=== PATIENT | male | born 1960 | race Caucasian/White ===

== ENCOUNTER 2023-03-23 11:58 | Observation (INO) | payer BC ==
[~2023-03-23] VITALS: Ht 177.8 cm; Wt 95.5 kg
[2023-03-23] MEDS ORDERED: nitroGLYCERIN 0.4mg SUBLingual tab SL PRN ×2 (12:10→13:45)
[2023-03-23] MEDS ORDERED: aspirin 81mg tab.chew PO ONE (12:10)
[2023-03-23] MEDS ORDERED: metoprolol tartrate 50mg tablet PO ONE (12:20)
[2023-03-23 12:23] LABS: MEAN CORPUSCULAR HEMOGLOBIN 27.8 PG (27.0-31.0); MEAN PLATELET VOLUME 7.2 FL (7.4-10.4); MONOCYTES # (AUTO) 0.6 X10'3 (0-0.9)
[2023-03-23 12:25] LABS: BASOPHILS % (AUTO) 0.2 % (0-1); EOSINOPHILS % (AUTO) 0.3 % (0-6); HEMATOCRIT 48.7 % (42.0-52.0); HEMOGLOBIN 16.6 g/dl (14.0-17.9); LYMPHOCYTES # (AUTO) 1.5 X10'3 (1.1-4.8); MEAN CORPUSCULAR HGB CONC 34.1 g/dL (33.0-36.5); MEAN CORPUSCULAR VOLUME 81.7 FL (78-98); MONOCYTES % (AUTO) 6.9 % (2-12); NEUTROPHILS # (AUTO) 6.7 X10'3 (1.8-7.7); NEUTROPHILS % (AUTO) 75.6 % (42-75); PLATELET COUNT 218 X10'3 (140-440); RED BLOOD COUNT 5.97 X10'6 (4.70-6.10); RED CELL DISTRIBUTION WIDTH 13.6 % (11.5-14.5); WHITE BLOOD COUNT 8.9 X10'3 (4.5-11.0)
[2023-03-23 12:38] LABS: ALANINE AMINOTRANSFERASE 33 U/L (12-78); ALBUMIN/GLOBULIN RATIO 0.9 (1.1-1.5); ALKALINE PHOSPHATASE 134 IU/L (46-116); ANION GAP 8 (8-16); ASPARTATE AMINO TRANSFERASE 18 U/L (10-37); BILIRUBIN,TOTAL 0.5 MG/DL (0.1-1.0); BLOOD UREA NITROGEN 18 MG/DL (7-18); BUN/CREATININE RATIO 17.6 (10.0-20.0); CALCIUM 9.8 MG/DL (8.5-10.1); CHLORIDE 102 MMOL/L (99-107); CREATININE 1.02 MG/DL (0.60-1.10); GLUCOSE 102 MG/DL (70-104); POTASSIUM 4.2 MMOL/L (3.5-5.1); SODIUM 140 MMOL/L (135-145); TOTAL CARBON DIOXIDE 30.1 MMOL/L (24-32); TOTAL PROTEIN 8.3 G/DL (6.4-8.2); eCRCL 80 ML/MIN; eGFR 74 ML/MIN
[2023-03-23 12:44] LABS: PRO BRAIN NATRIURETIC PEPTIDE < 30 PG/ML (0-125)
[2023-03-23] MEDS ORDERED: mag hydrox/Alum hydrox/simeth 30ml oral suspension PO PRN (13:45)
[2023-03-23] MEDS ORDERED: regadenoson 0.4mg/5ml syringe IV PRN (13:45)
[2023-03-23] MEDS ORDERED: morphine 2 MG/ML inj. syringe IV PRN ×2 (13:45)
[2023-03-23] MEDS ORDERED: potassium Cl 20 mEq SR tablet PO PRN ×2 (13:45)
[2023-03-23] MEDS ORDERED: aminophylline 250mg/10ml inj. IV PRN (13:45)
[2023-03-23] MEDS ORDERED: magnesium 4gm in 100ml NS 100 ML IV PRN (13:45)
[2023-03-23] MEDS ORDERED: acetaminophen 325mg tablet PO PRN (13:45)
[2023-03-23] MEDS ORDERED: metoprolol tartrate 1mg/ml inj IV PRN (13:45)
[2023-03-23] MEDS ORDERED: HYDROcodone/acetaminophen 5mg/325mg tablet PO PRN (13:45)
[2023-03-23] MEDS ORDERED: magnesium Cl slow-release 64mg tablet PO PRN (13:45)
[2023-03-23] MEDS ORDERED: potassium Cl 40MEQ/1/2NS 520ml 520 ML IV PRN (13:45)
[2023-03-23] MEDS ORDERED: ondansetron/PF 4mg/2ml inj IV PRN (13:45)
[2023-03-23] MEDS ORDERED: magnesium hydroxide 30ml (MOM) UD suspension PO PRN (13:45)
[2023-03-23] MEDS ORDERED: PERFLUTREN PROTEIN-A MICROSPHR (Optison) 0.22 MG/ML 3ML VIAL IV ONE (14:00)
[2023-03-23] MEDS: docusate sod 100mg capsule PO SCH (20:00)
[2023-03-23 23:35] VITALS: BP 153/79; PULSE 72; RESP 18; TEMP 98; O2SAT 98
[2023-03-24] VITALS (25 sets, daily range): BP systolic 120–164; BP diastolic 65–83; PULSE 69–140; RESP 12–20; TEMP 97.8–98.2; O2SAT 93–99
[2023-03-24 06:55] LABS: BASOPHILS % (AUTO) 0.3 % (0-1); EOSINOPHILS # (AUTO) 0.1 X10'3 (0-0.9); EOSINOPHILS % (AUTO) 1.1 % (0-6); HEMATOCRIT 44.9 % (42.0-52.0); HEMOGLOBIN 15.4 g/dl (14.0-17.9); LYMPHOCYTES # (AUTO) 1.6 X10'3 (1.1-4.8); LYMPHOCYTES % (AUTO) 25.1 % (21-51); MEAN CORPUSCULAR HGB CONC 34.2 g/dL (33.0-36.5); MEAN CORPUSCULAR VOLUME 81.8 FL (78-98); MEAN PLATELET VOLUME 7.2 FL (7.4-10.4); MONOCYTES # (AUTO) 0.6 X10'3 (0-0.9); MONOCYTES % (AUTO) 9.7 % (2-12); NEUTROPHILS # (AUTO) 4.2 X10'3 (1.8-7.7); NEUTROPHILS % (AUTO) 63.8 % (42-75); PLATELET COUNT 195 X10'3 (140-440); RED CELL DISTRIBUTION WIDTH 13.4 % (11.5-14.5); WHITE BLOOD COUNT 6.5 X10'3 (4.5-11.0)
[2023-03-24 07:19] LABS: ALANINE AMINOTRANSFERASE 23 U/L (12-78); ALBUMIN 3.2 G/DL (3.4-5.0); ALBUMIN/GLOBULIN RATIO 0.8 (1.1-1.5); ALKALINE PHOSPHATASE 116 IU/L (46-116); ANION GAP 6 (8-16); ASPARTATE AMINO TRANSFERASE 17 U/L (10-37); BILIRUBIN,TOTAL 0.4 MG/DL (0.1-1.0); BLOOD UREA NITROGEN 18 MG/DL (7-18); BUN/CREATININE RATIO 17.6 (10.0-20.0); CALCIUM 9.2 MG/DL (8.5-10.1); CHLORIDE 104 MMOL/L (99-107); CREATININE 1.02 MG/DL (0.60-1.10); GLUCOSE 112 MG/DL (70-104); MAGNESIUM 2.1 MG/DL (1.5-2.4); PHOSPHORUS 3.5 MG/DL (2.3-4.5); POTASSIUM 3.9 MMOL/L (3.5-5.1); SODIUM 139 MMOL/L (135-145); TOTAL PROTEIN 7.2 G/DL (6.4-8.2); eCRCL 80 ML/MIN; eGFR 74 ML/MIN
[2023-03-24] MEDS: docusate sod 100mg capsule PO SCH ×2 (08:00→20:00)
[2023-03-24] MEDS ORDERED: LIDOcaine 1% (10mg/ml) 2ml vial ONE (15:13)
[2023-03-24] MEDS ORDERED: verapamil 2.5 mg/ml inj IV ONE (15:13)
[2023-03-24] MEDS ORDERED: iohexol 350 MG/ML 50ML vial IV ONE (15:14)
[2023-03-24] MEDS ORDERED: nitroGLYCERIN 500mcg/5mL D5W 5 ML IV ONE (15:14)
[2023-03-24] MEDS ORDERED: fentaNYL/PF 50MCG/1 ML 2ML syringe ONE (15:14)
[2023-03-24] MEDS ORDERED: heparin 1,000unit/ml 10ml vial 10 ML ONE (15:14)
[2023-03-24] MEDS ORDERED: iohexol 350MG/ML 100ml bottle IV ONE ×2 (15:14→16:13)
[2023-03-24] MEDS ORDERED: midazolam 1 mg/ML 2ml injection ONE (15:14)
[2023-03-24] MEDS ORDERED: metoprolol tartrate 1mg/ml inj IV ONE (16:09)
[2023-03-24] MEDS ORDERED: OMEP20CA15 PO (18:39)
[2023-03-24 23:40] LABS: CHOL/HDL RATIO 4.2 (0.00-4.99); CHOLESTEROL 179 MG/DL (0-200); CREATININE 0.98 MG/DL (0.60-1.10); HDL CHOLESTEROL 43 MG/DL (35-60); LDL CHOLESTEROL 104 MG/DL (50-100); TRIGLYCERIDES 139 MG/DL (20-135); eCRCL 83 ML/MIN; eGFR 78 ML/MIN
== END 2023-03-24 23:25 | disposition home or self-care (01) ==
LOC: ER 11:58 → ED HOLD 13:54 → ORTHO 4S 23:35
PROVIDERS: ADMIT Family Medicine; ATTEND Family Medicine
DX: I25.10 Atherosclerotic heart disease of native coronary artery without angina pectoris (principal); I10 Essential (primary) hypertension; E66.9 Obesity, unspecified; Z63.4 Disappearance and death of family member; Z79.899 Other long term (current) drug therapy
CPT/HCPCS: 36415; 71045; 76937; 78452; 80053; 80061; 82565; 83735; 83880; 84100; 84484; 85025; 87081; 93005; 93017; 93306; 93458; 99285; A9500; G0378; J1644; J2250; J2785; J3010; J3490; J7030; Q9967; 99152; 99153; C1725; C1894

== ENCOUNTER 2024-10-18 07:13 | Emergency (ER) | payer BC ==
[~2024-10-18] VITALS: Ht 177.8 cm; Wt 94.4 kg
[~2024-10-18 07:13] MED LIST: OMEP20CA15 PO
--- NOTE | 2024-10-18 07:22 | ELECTROCARDIOGRAPH REPORT ---
[facility] Test Date: 2024-10-18 Test Time: 07:20:07 Pat Name: DINA CASTILLO Department: EMERGENCY ROOM Room: Gender: M Senior Graphic Designer: MANAN : 1960 Requested By: MARSHALL CHAPA Order Number: [id number] Reading MD: Dr. Dandre Granado Measurements Intervals [place] Rate: 67 P: 64 FL: 158 QRS: -40 QRSD: 103 T: 39 QT: 403 QTc: 426 Interpretive Statements Sinus rhythm Left axis deviation Electronically Signed On 10-18-2024 20:05:[address] Dandre Granado Please click the below link to view image of tracing.
[2024-10-18 07:31] LABS: MEAN PLATELET VOLUME 7.1 FL (7.4-10.4); RED CELL DISTRIBUTION WIDTH 14.2 % (11.5-14.5)
--- NOTE | 2024-10-18 07:39 | RADIOLOGY REPORT ---
CHEST RADIOGRAPH Indication: CP Technique: Single frontal view of the chest was obtained COMPARISON: DI CHEST,SINGLE VIEW on DOS: 03/23/23 FINDINGS: Lines and Tubes: None Lungs: Clear Pleura: No effusion. No pneumothorax. Cardiomediastinal contours: Unremarkable Bones: Unremarkable IMPRESSION: No acute disease.
[2024-10-18 08:20] LABS: CREATININE 1.01 MG/DL (0.60-1.10); PRO BRAIN NATRIURETIC PEPTIDE 97 PG/ML (0-125); TOTAL CARBON DIOXIDE 27.9 MMOL/L (24-32); eCRCL 78 ML/MIN; eGFR 75 ML/MIN
--- NOTE | 2024-10-18 08:44 | Physician Documentation ---
History of Present Illness ~ Chief Complaint: Chest Pain Stated Complaint: CP Time Seen by MD: 08:21 Primary Medical Doctor: PCP is Eris @ [facility], Dr Rodriguez is Glove Examiner HPI 64-year-old male presenting for chest pain that occurred last night. Patient states that less than evening he started having a pressure-like sensation in his chest and felt like his heart was racing. The pain radiated to his shoulder and up into his neck. He describes it as a pressure-like type of pain. Reports that he took some metoprolol and the pain greatly improved and essentially went away. This morning he woke up and was concerned about it so he came to the ER to get checked out. He describes a long history of having unusual sensations in his chest. He states that he will have these episodic as this is where he will feel like his heart is racing and then subsequently developed a lot of pressure in his chest. He has seen multiple knifer up for this and has been unable to find a diagnosis so far. Reports that he has not appointment with [facility] next week as well as an appointment with Dr. Turner tomorrow. He otherwise denies any shortness of breath, fever, chills or any other associated symptoms. Medication Reconciliation Allergies: Coded Allergies: No Known Allergies (Unverified , 03/23/23) Scheduled Omeprazole (Omeprazole), 1 CAP PO DAILY Past Medical History Past Medical History: No Pertinent History Past Surgical History: noncontributory Patient History: FH: atrial fibrillation Drug Use: none Lives with: Family Lives In: Home Review of Systems All Other Systems at this time: Reviewed and Negative Physical Exam Vital Signs: Temperature: 98.7, Source: Oral, Heart Rate: 72, Respiratory Rate: 16, BP: 166/88, Pulse Oximetry: 99, Weight: 94.400 Oxygen Flow Rate: 0 Physical Exam I have reviewed the triage vitals. CONST: Well developed and well nourished. In no acute distress HENT: Head Atraumatic EYES: Pupils are equal, round and reactive to light. Normal conjunctiva NECK: Normal range of motion. Supple. CARDIO: Normal rate and regular rhythm. No murmurs, rubs, or gallops. S1, S2. PULM/CHEST: No respiratory distress. Lungs clear to auscultation. No wheeze ABD: Soft and nontender. Nondistended. Bowel sounds normal. No guarding. : Exam deferred MSK: No edema. No deformity. NEURO: Alert and oriented to person, place and time. Moving all extremities SKIN: Warm and dry. PSYCH: Normal mood and affect. Good eye contact. Progress Results/Orders Results/Orders Orders - MARSHALL CHAPA MD Chest,Single View (10/18/24 07:19) Monitor (10/18/24 07:19) Saline Lock (10/18/24 07:19) Oxygen (10/18/24 07:19) Hs Troponin I W Calculations (10/18/24 10:19) Completed Orders - MARSHALL CHAPA MD Chest,Single View (10/18/24 07:19) Cbc/Diff (10/18/24 07:19) BMP (10/18/24 07:19) PBNP (10/18/24 07:19) Electrocardiogram (10/18/24 07:19) Hs Troponin I W Calculations (10/18/24 07:19) Hs Troponin I W Calculations (10/18/24 09:19) MG (10/18/24 07:21) Vital Signs 10/18/24 10/18/24 07:20 07:45 Temp 98.7 Pulse 72 Resp 16 B/P (MAP) 166/88 Pulse Ox 99 O2 Flow Rate 0 Laboratory Tests Test 10/18/24 07:21 10/18/24 09:28 White Blood Count 7.6 Red Blood Count 5.74 Hemoglobin 16.2 Hematocrit 46.2 Mean Corpuscular Volume 80.5 Mean Corpuscular Hemoglobin 28.2 Mean Corpuscular Hemoglobin Concent 35.0 Red Cell Distribution Width 14.2 Platelet Count 193 Mean Platelet Volume 7.1 L Neutrophils (%) (Auto) 65.7 Lymphocytes (%) (Auto) 23.5 Monocytes (%) (Auto) 9.7 Eosinophils (%) (Auto) 0.8 Basophils (%) (Auto) 0.3 Neutrophils # (Auto) 5.0 Lymphocytes # (Auto) 1.8 Monocytes # (Auto) 0.7 Eosinophils # (Auto) 0.1 Basophils # (Auto) 0.0 CBC Comment Sodium Level 140 Potassium Level 4.1 Chloride Level 105 Carbon Dioxide Level 27.9 Anion Gap 7 L Blood Urea Nitrogen 14 Creatinine 1.01 Estimated GFR/1.73 m2 75 BUN/Creatinine Ratio 13.9 Glucose Level 110 H Calcium Level 9.0 Magnesium Level 2.4 Troponin I High Sensitivity 5 6 Pro-B-Type Natriuretic Peptide 97 Albumin 3.8 Chemistry Comments Troponin I High Sens Percent Delta 20 Troponin I Hi Sens Absolute Change 1 Departure Disposition: 01 HOME / SELF CARE / HOMELESS Impression: Primary Impression: Chest pressure Discharge Instructions: Nonspecific Chest Pain, Adult Additional Instructions: Keep your appointments with your cardiologists both tomorrow next week. Monitor your symptoms. Should they return again come back immediately to the emergency department. Referrals: NO PRIMARY CARE PROVIDER (PCP) MARSHALL CHAPA MD Oct 18, 2024 08:44
[2024-10-18 11:42] VITALS: BP 128/73; PULSE 53; RESP 17; TEMP 98; O2SAT 97
== END 2024-10-18 11:43 | disposition home or self-care (01) ==
LOC: ER 07:14
DX: R07.89 Other chest pain (principal)
CPT/HCPCS: 36415; 71045; 80048; 83735; 83880; 84484; 85025; 93005; 99285

== ENCOUNTER 2025-02-04 17:12 | Emergency (ER) | payer BC ==
[~2025-02-04] VITALS: Ht 177.8 cm; Wt 86.4 kg
[2025-02-04 17:17] VITALS: TEMP 98.2
--- NOTE | 2025-02-04 17:20 | ELECTROCARDIOGRAPH REPORT ---
[facility] Test Date: 2025-02-04 Test Time: 17:15:51 Pat Name: DINA CASTILLO Department: EMERGENCY ROOM Room: Gender: M Customer Operations Associate: PAMELA : 1960 Requested By: SHARRON LUCIANO Order Number: [id number] Reading MD: Dr. Dandre Granado Measurements Intervals [place] Rate: 71 P: 73 IA: 148 QRS: -43 QRSD: 114 T: 48 QT: 424 QTc: 461 Interpretive Statements Sinus rhythm Borderline IVCD with LAD Electronically Signed On 02-06-2025 9:40:[address] Dandre Granado Please click the below link to view image of tracing.
[2025-02-04 17:34] LABS: MEAN PLATELET VOLUME 7.2 FL (7.4-10.4); RED CELL DISTRIBUTION WIDTH 13.5 % (11.5-14.5)
[2025-02-04 17:54] LABS: CREATININE 0.81 MG/DL (0.60-1.10); PRO BRAIN NATRIURETIC PEPTIDE 50 PG/ML (0-125); TOTAL CARBON DIOXIDE 29.4 MMOL/L (24-32); eCRCL 98 ML/MIN; eGFR > 90 ML/MIN
--- NOTE | 2025-02-04 18:33 | Physician Documentation ---
History of Present Illness ~ Chief Complaint: Chest Pain Stated Complaint: CHEST PAIN Time Seen by MD: 17:22 Primary Medical Doctor: PCP is Eris @ [facility], Dr Rodriguez is Health And Wellness Manager Source: patient Mode of Arrival: Ambulatory Exam Limitations: no limitations HPI 64-year-old male who presents with chest pain that he states he has been dealing with intermittently for the past five years. He had a heart catheterization in 2023 which was unremarkable. He states he has seen three different superintendent drilling in his even been worked up at [facility]. The only abnormality that they have noted is is that on his Zio patch he did have a few bouts of SVT. He states that [facility] also picked up that he has a myocardial bridge and he is waiting to discuss potential treatment of this with a surgeon. He is currently on sotalol. He does not take any other medications. He states that the episodes you do tend to occur with exertion. He states that he just feels like he is more short of breath than he should be. He has been walking every day his for the past few weeks and states that he has lost some weight which he feels good about but that he continues to experience episodes of chest pain. He states today the chest pain occurred all day. He reports that his recently came across broken heart syndrome and he was looking through all those symptoms and he states I hit all of them with the exception of swelling in my legs and not being able to lay flat." He states when he feels that chest pain and fast heart rate he states what is really interesting is is that his heart rate is actually never fast when he checks it. He also describes his symptoms as feeling like he is very anxious but states there was nothing for him to be anxious about. Medication Reconciliation Allergies: Coded Allergies: No Known Allergies (Unverified , 03/23/23) Scheduled Omeprazole (Omeprazole), 1 CAP PO DAILY Past Medical History Past Medical History: No Pertinent History Past Surgical History: noncontributory Patient History: FH: atrial fibrillation Drug Use: none Lives with: Family Lives In: Home Review of Systems All Other Systems at this time: Reviewed and Negative Physical Exam Vital Signs: Temperature: 98.2, Source: Temporal, Heart Rate: 71, Respiratory Rate: 17, BP: 151/95, Pulse Oximetry: 98, Weight: 86.360 Oxygen Flow Rate: 0 Physical Exam GENERAL: Alert, no acute distress. HEENT: NCAT, EOMI, PERRL, normal oropharynx, moist oral mucosa. NECK: Supple, trachea midline. CARDIAC: Regular rate and rhythm, no murmurs, rubs, or gallops. Equal distal pulses. No lower extremity edema, cap refill less than 2 seconds. RESPIRATORY: Equal breath sounds, clear to auscultation bilaterally, no respiratory distress. GASTROINTESTINAL: Non distended, soft, nontender, No guarding or rebound. MUSCULOSKELETAL: Normal range of motion, nontender, no swelling. Normal gait. NEUROLOGICAL: Awake, alert, and oriented x 3. SKIN: Warm/dry, no pallor, no rash. PSYCH: Alert and appropriate. Affect congruent with mood. Speech is clear. Good eye contact. Progress Results/Orders Results/Orders Vital Signs 02/04/25 02/04/25 02/04/25 02/04/25 17:17 17:24 17:47 18:40 Temp 98.2 Pulse 70 71 74 Resp 16 17 16 B/P (MAP) 157/78 151/95 (113) 147/84 Pulse Ox 99 98 97 O2 Flow Rate 0 0 Laboratory Tests Test 02/04/25 17:21 White Blood Count 7.6 Red Blood Count 5.50 Hemoglobin 15.5 Hematocrit 44.9 Mean Corpuscular Volume 81.6 Mean Corpuscular Hemoglobin 28.2 Mean Corpuscular Hemoglobin Concent 34.6 Red Cell Distribution Width 13.5 Platelet Count 201 Mean Platelet Volume 7.2 L Neutrophils (%) (Auto) 71.3 Lymphocytes (%) (Auto) 19.3 L Monocytes (%) (Auto) 8.3 Eosinophils (%) (Auto) 0.7 Basophils (%) (Auto) 0.4 Neutrophils # (Auto) 5.4 Lymphocytes # (Auto) 1.5 Monocytes # (Auto) 0.6 Eosinophils # (Auto) 0.1 Basophils # (Auto) 0.0 CBC Comment Sodium Level 138 Potassium Level 3.5 Chloride Level 102 Carbon Dioxide Level 29.4 Anion Gap 7 L Blood Urea Nitrogen 15 Creatinine 0.81 Estimated GFR/1.73 m2 > 90 BUN/Creatinine Ratio 18.5 Glucose Level 115 H Calcium Level 8.6 Troponin I High Sensitivity 6 Pro-B-Type Natriuretic Peptide 50 Albumin 4.0 Chemistry Comments Heart Score: Heart Score Response (Comments) Value History Slightly Suspicious 0 EKG Normal 0 Age 45-64 1 Risk Factors 1 or 2 risk factors 1 Troponin Normal limit 0 Total 2 Medical Decision Making Additional information obtaine: old records Findings Reviewed the echocardiogram we have on file, his heart catheterization report, previous hospital admission. Heart Score: 2 Differential Dx:Considerations: Include: angina, aortic dissection, chest wall pain, cholelithiasis, CHF, costochondritis, esophageal reflux/spasm, gastritis, herpes zoster, myocardial infarction, pericarditis, pleuritis, pancreatitis, pneumonia, pneumothorax, pulmonary embolus, other Additional Information Pulmonary embolism in the differential however patient is not tachycardic is not hypoxic in his symptoms have been coming and going now for five years. His normal heart catheterization rolls out CAD. Departure Time of Disposition: 18:33 Disposition: 01 HOME / SELF CARE / HOMELESS Impression: Primary Impression: Chest pain Qualified Codes: R07.9 - Chest pain, unspecified Condition: Stable Discharge Instructions: Nonspecific Chest Pain, Adult Additional Instructions: I recommend getting a pulmonary function study due to the component of shortness of breath associated with the symptoms You will f/u with [facility] re: your myocardial bridge and f/u with pcp/superintendent drilling about the potential for cortisol contributing to symptoms RETURN TO ER IF YOU HAVE ANY OTHER CONCERNS, WE WOULD RATHER HAVE YOU COME IN AND GET EVALUATED THAN SOMETHING HAPPEN! Referrals: NO PRIMARY CARE PROVIDER (PCP) Education Educated: Patient Educated regarding: diagnosis, treatment, need for follow up Signature Scribe Signature: x Attestation: ANATOLY Correia Feb 04, 2025 18:33
[2025-02-04 18:40] VITALS: BP 147/84; PULSE 74; RESP 16; O2SAT 97
--- NOTE | 2025-02-04 18:42 | RADIOLOGY REPORT ---
EXAM: DI CHEST,SINGLE VIEW HISTORY: CP TECHNIQUE: 1 view of the chest COMPARISON: DI CHEST,SINGLE VIEW on DOS: 10/18/24 FINDINGS/IMPRESSION: LUNGS: No pleural effusion, consolidation, or pneumothorax. MEDIASTINUM: Unremarkable. BONES: Unchanged right posterior prior displaced rib fractures with likely malunited appearance OTHER: None.
== END 2025-02-04 18:50 | disposition home or self-care (01) ==
LOC: ER 17:13
DX: R07.9 Chest pain, unspecified (principal); Z79.899 Other long term (current) drug therapy
CPT/HCPCS: 36415; 71045; 80048; 83880; 84484; 85025; 93005; 99285